=== PATIENT | female | born 1950 ===

== ENCOUNTER 2017-09-22 10:36 | Outpatient (CLI) | payer OTHER | END 2017-09-22 15:38 | disposition home or self-care (01) | LOC: SONOGRAMA 10:36 | DX: R10.10 Upper abdominal pain, unspecified (principal) ==

== ENCOUNTER 2017-11-13 08:38 | Outpatient (CLI) | payer OTHER | END 2017-11-13 17:00 | disposition home or self-care (01) | LOC: TOM 08:38 | DX: R10.12 Left upper quadrant pain (principal); R10.32 Left lower quadrant pain | CPT/HCPCS: 74177; Q9965 ==

== ENCOUNTER 2018-02-02 09:07 | Outpatient (CLI) | payer OTHER | END 2018-02-02 10:00 | disposition home or self-care (01) | LOC: NUCLEAR 09:07 | DX: M81.0 Age-related osteoporosis without current pathological fracture (principal) ==

== ENCOUNTER → 2018-02-02 | Outpatient (CLI) | payer OTHER | END | disposition home or self-care (01) | LOC: RAD 10:04 | DX: M15.0 Primary generalized (osteo)arthritis (principal) ==

== ENCOUNTER → 2018-05-24 | Outpatient (CLI) | payer OTHER | END | disposition home or self-care (01) | LOC: MAMO-SONO 11:15 | DX: Z12.31 Encounter for screening mammogram for malignant neoplasm of breast (principal); Z87.898 Personal history of other specified conditions; N60.11 Diffuse cystic mastopathy of right breast; N60.12 Diffuse cystic mastopathy of left breast ==

== ENCOUNTER → 2018-11-03 | Outpatient (CLI) | payer OTHER | END | disposition home or self-care (01) | LOC: NUCLEAR 12:28 | DX: M81.0 Age-related osteoporosis without current pathological fracture (principal); M85.80 Other specified disorders of bone density and structure, unspecified site ==

== ENCOUNTER → 2018-12-13 | Outpatient (CLI) | payer OTHER | END | disposition home or self-care (01) | LOC: MRI 10:20 | DX: R42 Dizziness and giddiness (principal); R41.3 Other amnesia | CPT/HCPCS: 70551 ==

== ENCOUNTER 2019-07-07 10:05 | Outpatient (CLI) | payer OTHER | END 2019-07-07 10:15 | disposition home or self-care (01) | LOC: MAMO-SONO 10:05 | DX: Z12.31 Encounter for screening mammogram for malignant neoplasm of breast (principal); Z87.898 Personal history of other specified conditions ==

== ENCOUNTER 2019-11-04 10:49 | Outpatient (CLI) | payer OTHER | END 2019-11-04 10:51 | disposition home or self-care (01) | LOC: RAD 10:49 | DX: Z01.811 Encounter for preprocedural respiratory examination (principal) ==

== ENCOUNTER → 2020-05-24 | Outpatient (CLI) | payer OTHER | END | disposition home or self-care (01) | LOC: MAMO-SONO 10:55 | PROVIDERS: ATTEND Obstetrics & Gynecology | DX: M41.87 Other forms of scoliosis, lumbosacral region (principal); M50.323 Other cervical disc degeneration at C6-C7 level; N60.11 Diffuse cystic mastopathy of right breast; M54.5 Low back pain ==

== ENCOUNTER → 2020-07-12 | Outpatient (CLI) | payer OTHER | END | disposition home or self-care (01) | LOC: MAMO-SONO 14:10 | PROVIDERS: ATTEND Obstetrics & Gynecology | DX: N60.11 Diffuse cystic mastopathy of right breast (principal); Z12.31 Encounter for screening mammogram for malignant neoplasm of breast ==

== ENCOUNTER → 2020-11-01 | Outpatient (CLI) | payer OTHER | END | disposition home or self-care (01) | LOC: MRI 10:15 | DX: I63.89 Other cerebral infarction (principal); R11.2 Nausea with vomiting, unspecified; R41.3 Other amnesia | CPT/HCPCS: 70553; A9575 ==

== ENCOUNTER → 2021-10-10 | Outpatient (CLI) | payer OTHER ==
[~2021-10-10] MED LIST: DICLOFENAC POTA50 MG PO; NORFLEX100MG PO
== END | disposition home or self-care (01) ==
LOC: MAMO-SONO 11:30
PROVIDERS: ATTEND Obstetrics & Gynecology
DX: N60.11 Diffuse cystic mastopathy of right breast (principal)

== ENCOUNTER 2021-11-22 10:06 | Outpatient (CLI) | payer OTHER | END 2021-11-22 10:35 | disposition home or self-care (01) | LOC: RAD 10:06 | DX: M54.12 Radiculopathy, cervical region (principal); M54.13 Radiculopathy, cervicothoracic region ==

== ENCOUNTER 2022-11-04 10:30 | Outpatient (CLI) | payer OTHER | END 2022-11-04 10:35 | disposition home or self-care (01) | LOC: MAMO-SONO 10:30 | PROVIDERS: ATTEND Obstetrics & Gynecology | DX: N60.11 Diffuse cystic mastopathy of right breast (principal); Z12.31 Encounter for screening mammogram for malignant neoplasm of breast ==

== ENCOUNTER 2023-02-06 13:17 | Outpatient (CLI) | payer OTHER | END 2023-02-06 13:26 | disposition home or self-care (01) | LOC: MRI 13:17 | PROVIDERS: ATTEND Physical Medicine & Rehabilitation | DX: M25.551 Pain in right hip (principal) | CPT/HCPCS: 73721 ==